=== PATIENT | female | born 1940 | race Caucasian/White ===

== ENCOUNTER 2016-07-06 11:25 | Emergency (ER) | payer OTHER ==
[2016-07-06] MEDS ORDERED: MORPHINE 4 MG/ML SYR ONE (13:16)
== END 2016-07-06 15:20 | disposition home or self-care (01) ==
LOC: ER 11:25
DX: S90.31XA Contusion of right foot, initial encounter (principal); W01.0XXA Fall on same level from slipping, tripping and stumbling without subsequent striking against object, initial encounter; Y92.019 Unspecified place in single-family (private) house as the place of occurrence of the external cause; Z79.01 Long term (current) use of anticoagulants
CPT/HCPCS: 36415; 73610; 73630; 85610; 85730; 96372; 99284; J2270